=== PATIENT | male | born 1985 | race American Indian/Alaskan Native ===

== ENCOUNTER 2021-10-04 14:45 | Outpatient (CLI) | payer OTHER ==
--- NOTE | 2021-10-04 16:22 | MRI Report ---
PROCEDURE: Lumbar Spine W/O INDICATIONS: LOW BACK PAIN TECHNIQUE: Noncontrast sagittal T1 spin echo and T2 fast echo, sagittal STIR, axial T1 and T2 fast spin echo thr ough the lumbar spine. In cases with scoliosis, additional coronal T2 fast spin echo may be performe d. COMPARISON: None. FINDINGS: Normal lumbar vertebral body height and alignment. No suspicious focal marrow signal abnormality or b one marrow edema. Normal position and appearance of the conus. Regional soft tissues demonstrate no s ignificant abnormality. T12-L1: No spinal canal or neural foraminal stenosis. No significant degenerative changes. L1-L2: Disc desiccation and disc height loss. Diffuse disc bulge flattening the ventral thecal sac without mass effect upon the traversing L2 nerve roots. No neural foraminal stenosis. L2-L3: No significant degenerative change, spinal canal stenosis, or neural foraminal stenosis. L3-L4: Disc desiccation and disc height loss with diffuse disc bulge and a superimposed broad-based posterior disc protrusion in the central and left paracentral zones where there is an associated sonja ular fissure. Disc material flattens and indents the ventral thecal sac without mass effect upon the traversing L4 nerve roots. Mild left neural foraminal stenosis due to a small foraminal component of the disc bulge. L4-L5: Disc desiccation and disc height loss. Diffuse disc bulge and a superimposed broad-based pos terior disc protrusion in the central, right paracentral, and right subarticular zones where there is an associated annular fissure. Disc material mildly displaces the descending right L5 nerve roots in the right subarticular zone. There is mild bilateral neural foraminal stenosis due to foraminal comp onents of the disc bulge, more so on the right. L5-S1: No spinal canal or neural foraminal stenosis. IMPRESSION: Degenerative changes at L3-L4 and L4-L5. Mild displacement of the descending right L5 nerve roots of the right subarticular zone by bulging di sc material. Correlate for corresponding right L5 radicular symptoms. Annular fissures of the L3-L4 and L4-L5 discs, potential sources of nonradicular axial back pain. Reviewed by: Pete Roper MD on 10/04/2021 4:20 PM PDT Approved by: Pete Roper MD on 10/04/2021 4:20 PM PDT Station ID: [id number]
== END 2021-10-04 14:46 | disposition home or self-care (01) ==
LOC: DI 14:45
DX: M51.36 Other intervertebral disc degeneration, lumbar region (principal); M48.061 Spinal stenosis, lumbar region without neurogenic claudication; M51.16 Intervertebral disc disorders with radiculopathy, lumbar region

== ENCOUNTER 2022-01-31 08:22 | Outpatient (CLI) | payer OTHER | END 2022-01-31 08:23 | disposition home or self-care (01) | LOC: SC 08:22 | PROVIDERS: ATTEND Nurse Practitioner Family | DX: G47.33 Obstructive sleep apnea (adult) (pediatric) (principal); R09.02 Hypoxemia; Z68.36 Body mass index [BMI] 36.0-36.9, adult | CPT/HCPCS: 95806 ==

== ENCOUNTER 2022-02-07 15:46 | Outpatient (CLI) | payer OTHER ==
--- NOTE | 2022-02-07 16:13 | SLEEP CARE CONSULTATION ---
Information from patient questionnaire entered by Cely Camejo. I have reviewed and concur with the information entered by Cely Camejo. This document represents the service I personally performed and the decisions made by me, Daphne Saez ARNP. History of Present Illness Service Date and Time: 02/07/2022 1546 Initial [place] Sleepiness Scale score: 16 (01/11/2022) Current [place] Sleepiness Scale score: 14 (02/07/22) Additional HPI information: FRANCISCA WALL returns for follow up and results of the recently performed home sleep study. I explained the pathophysiology behind obstructive sleep apnea. We then spent quite a bit of time discussing different treatment options. For mild obstructive sleep apnea, surgery and oral appliance are alternatives to nasal CPAP therapy but in moderate or severe cases, nasal CPAP is the most effective and reliable treatment. I reviewed the impact of weight changes on sleep apnea and strongly recommended losing weight. After some discussion, the patient opted to go with the nasal CPAP therapy. Nasal autoCPAP set at 4-15 cmH20 will be ordered with rationale explained. A manual titration study will be ordered if unable to find optimal pressure with office adjustments. I explained how CPAP machine works and what to expect when using the machine. Using CPAP every night in order to get used to it was emphasized. Patient advised to put CPAP mask on before getting into bed so as not to fall asleep without CPAP. The patient was instructed to call the CPAP supplier to discuss any mechanical problem that may occur. If the mask given is uncomfortable or is difficult to keep on through the night even with adjustment, contact the CPAP supplier as many will replace with another mask style if notified before 30 days. If snoring or perceives is not getting enough air or too much air from the machine, notify this office. Patient counseled not drink alcohol less than 4 hours before bedtime as it can increase snoring and apnea. Patient was cautioned about risks of drowsy driving until sleepiness symptoms resolve. Patient denies drowsy driving. Sleep Study - Results Type of Sleep Study: Home sleep study (F/U HST, DONE 01/31/22) Prior sleep studies: Yes Year and Where: 2016 [place], [place] Polysomnography/Home Sleep Study results: Physician Impression: The quality of the study is good. The length of the study is adequate (> 240 minutes). Please also see the tabulated and graphic data. 1. Obstructive Sleep Apnea-Hypopnea (ICD-10 G47.33), severe, with an AHI of 47.5/hr and chidi SaO2 of 70%. During the study, the patient had 372 apneas (372 obstructive, 0 central, 0 mixed) and 79 hypopneas. The longest episode lasted 98.0 seconds. The respiratory events occurred more frequently during supine sleep (supine AHI was 88.6 and non-supine, 29.19). 2. Hypoxemia (ICD-10 R09.02), moderate, with the lowest oxygen saturation of 70 % and 69.3 minutes with SaO2 under 90%. Baseline oxygen saturation was normal (Average oxygen saturation was 94%). Allergies and Home Medications Drug allergies reviewed: Yes (NKDA) Home medication list reviewed: Yes (no changes) Review of Systems Review of systems same as previous: Yes (no changes) Physical Exam Vital signs obtained and entered by: KARLA BOURGEOIS Blood Pressure: 138/88 (LEFT ARM ) Cuff size: regular Heart Rate: 84 O2 Saturation: 98 Height: 5 ft 9 in Weight: 258 lb Body Mass Index: 38.0 BMI Classification: Obese Impression and Plan 1. Obstructive Sleep Apnea-Hypopnea Syndrome, severe, with lowest oxygen saturation of 70%. Obviously this is the cause of the patients symptoms of unrefreshed sleep, and excessive daytime sleepiness. Positive pressure therapy could benefit anxiety, depression and attention deficit. As mentioned above, the patient will be started on nasal autoCPAP therapy with pressure set at 4-15 cmH2O. Compliance guidelines also reviewed. A copy of compliance guidelines will be given for reference at check out. Because the apnea is more severe supine, I instructed to avoid sleeping supine using pillow positioning until able to start CPAP use. 2. Hypoxemia, moderate, with the lowest oxygen saturation of 70 % and 69.3 minutes with SaO2 under 90%. His baseline oxygen saturation was normal with an average oxygen saturation of 94%. * Nasal auto CPAP therapy, pressure at 4-15 cm H2O. * Attempt to lose weight. * Avoid alcohol consumption near bedtime. * Avoid supine sleep until using CPAP. * The patient is again cautioned about driving until sleepiness completely resolves. * Return one month after CPAP obtained. I will assess response to therapy and compliance at that time. Counseling Topics: Sleeping position, Weight loss health impact Visit Type: In Office Time Spent with Patient (minutes): 13 Provider Statement: I spent 100% of the Face to Face Visit with the patient with greater than 50% spent counseling the patient and coordination of care.
[2022-02-07 16:14] VITALS: BP 138/88
== END 2022-02-07 15:47 | disposition home or self-care (01) ==
LOC: SC 15:46
PROVIDERS: ATTEND Nurse Practitioner Family
DX: G47.33 Obstructive sleep apnea (adult) (pediatric) (principal); R09.02 Hypoxemia; E66.9 Obesity, unspecified; Z68.38 Body mass index [BMI] 38.0-38.9, adult
CPT/HCPCS: 99212

== ENCOUNTER 2022-11-22 06:57 | Outpatient (CLI) | payer OTHER ==
--- NOTE | 2022-11-22 09:07 | MRI Report ---
PROCEDURE: SHOULDER WO - LT INDICATIONS: LT SHOULDER PAIN, HX REPAIR LABRUM OF LT SHOULDER TECHNIQUE: Noncontrast oblique coronal T2 fast spin echo with fat saturation, oblique sagittal T1 spin echo and T2 fast spin echo with fat saturation, axial T1 spin echo and T2 fast spin echo with fat saturation t hrough the shoulder. COMPARISON: None. FINDINGS: Image quality: Excellent. Rotator cuff: Mild T2 signal elevation throughout the supraspinatus and infraspinatus tendons at the humeral insertion sites extending the muscular tendinous junctions, indicating tendinopathy. Superimp osed low-grade bursal surface tears of the anterior, mid, posterior supraspinatus as well as the ante rior and mid infraspinatus tendons at the humeral insertion sites extending the muscular tendinous ju nctions. Subscapularis and teres minor tendons are intact. No rotator cuff muscle atrophy on sagittal images. Bones and bursae: No bone marrow contusions or fractures. Instrumentation tracks within the inferior glenoid. Mild acromioclavicular joint degeneration. The acromion demonstrates conventional anatomy, without an os acromiale. No pathologic subacromial/subdeltoid bursal fluid is present. Capsule and soft tissues: There is undercutting of the posterior inferior labrum. The long head of th e biceps tendon demonstrates normal location and morphology. The rotator interval appears normal, wi thout fibrosis. The coracohumeral ligament is normal in thickness. IMPRESSION: 1. 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 2. Postsurgical sequelae. 3. Undercutting of the posterior inferior labrum, which could indicate recurrent labral tearing. MRI arthrography may be helpful for further assessment. 4. Acromioclavicular joint osteoarthritis. Reviewed by: Ronnie Giordano MD on 11/22/2022 9:05 AM PDT Approved by: Ronnie Giordano MD on 11/22/2022 9:05 AM PDT Station ID: [id number]
== END 2022-11-22 06:58 | disposition home or self-care (01) ==
LOC: DI 06:57
DX: M75.112 Incomplete rotator cuff tear or rupture of left shoulder, not specified as traumatic (principal); M19.012 Primary osteoarthritis, left shoulder

== ENCOUNTER 2023-04-11 14:03 | Outpatient (CLI) | payer OTHER ==
--- NOTE | 2023-04-11 14:37 | Sleep Patient Instructions ---
Sleep Center Visit Summary - Patient Visit Information Reason for Visit: Annual Visit - Patient Instructions Additional Instructions: You will continue with CPAP therapy with pressure changed to 4-8 cmH2O. A supply prescription will be updated with your DME. A prescription for a travel CPAP was given to you today. We encourage you to continue to try to lose weight. Please follow up with the sleep care office in 1 year. - Clinic Information Contact: [facility] [address] [place] [email or web address] T: [phone]
[2023-04-11 14:43] VITALS: BP 127/84; O2SAT 95
--- NOTE | 2023-04-11 14:43 | SLEEP CARE CONSULTATION ---
Information from patient questionnaire entered by Rin Pérez. I have reviewed and concur with the information entered by Rin Pérez. This document represents the service I personally performed and the decisions made by , Daphne Saez ARNP. History of Present Illness Service Date and Time: 04/11/2023 1403 Previous diagnosis: Severe, Obstructive Sleep Apnea-Hypopnea Syndrome AHI: 47.5 (in 01/2022) Reason for follow up: first compliance, annual Equipment type: CPAP (RESMED 2022) Equipment obtained from: Other ([facility]; getting supplies) Mask style: Nasal pillows Backup mask available: No (will keep old mask when replaced) Last cushion change: 2 days ago Prior sleep studies: Yes Year and Where: 2016 [place], [place] Type of Sleep Study: Home sleep study (F/U HST, DONE 01/31/22) HPI additional information: FRANCISCA WALL was diagnosed to have severe, AHI 47.5, obstructive sleep apnea- hypopnea syndrome and returned today for CPAP therapy first compliance/annual fo llow-up. Sleep Study - Results Type of Sleep Study: Home sleep study (F/U HST, DONE 01/31/22) Prior sleep studies: Yes Year and Where: 2016 [place], [place] CPAP Compliance Data - Data Reviewed with Patient Average duration of nightly device use: 6 hours 25 minutes Compliance rate %: 90 (/30 days used) Current pressure setting (cmH2O): 4-15 (median 4.7, avg 6.6, max 7.8) Average residual AHI: 0.4 Central apnea: 0.1 Obstructive apnea: 0.2 Average large leak: 1 L/min Subjective Missed days of use due to: reports: illness, travel Patient concerns: reports: nasal congestion (due to allergies and illnesses). denies: aerophagia, mask discomfort, air blowing in eyes, mask leak noise, condensation in mask/hose, dry mouth, nose, throat, epistaxis Observed to snore while using device: No Current pressure setting perceived as: comfortable On therapy, patient: reports: sleeping better, awakening more refreshed, being more awake and alert during the day, more rested overall. denies: drowsiness while driving Initial [place] Sleepiness Scale score: 16 (01/11/2022) Current [place] Sleepiness Scale score: 14 Allergies and Home Medications Known drug allergies: No Drug allergies reviewed: Yes Home medication list reviewed: Yes (Trulicity, phentermine, pravastatin; ibuprofen and allergy meds prn) Review of Systems Review of systems same as previous: Yes (no changes) Physical Exam Vital signs obtained and entered by: Daphne Palmer NP Blood Pressure: 127/84 Cuff size: wrist (right) Heart Rate: 76 O2 Saturation: 95 Height: 5 ft 9 in Weight: 246 lb 3.2 oz Weight change since last visit: 23 lb loss Body Mass Index: 36.3 BMI Classification: Obese Impression and Plan 1. Obstructive Sleep Apnea-Hypopnea Syndrome, severe, with good treatment compliance and good apnea control. On CPAP therapy, the patient has better sleep quality and is more rested overall. Patient asks about getting a travel CPAP machine since he [place] a lot for the [employer] [place] and sometimes does not have room to take his regular CPAP. A prescription will be give to patient, he understands that insurance does not always pay for this and will talk to his PCM about getting it covered. The patients pressure will be changed to autoCPAP 4-8 cmH20 to reflect pressure being used. Patient advised to contact me if pressure change is uncomfortable so that it can be adjusted. Goals for apnea control discussed. Patient's apnea severity and rationale for treatment to reduce apnea, improve sleep quality and reduce cardiovascular and cerebrovascular events was reviewed. I also reviewed the benefit of consistent device use of CPAP for depression/anxiety and attention deficit. 2. Obesity, unspecified. Currently patients BMI is 36.3. Obesity increases the risk of apnea, CPAP pressure requirements and overall health risks especially cardiovascular and diabetes. Thus patient is advised to continue to try to lose weight. * Change auto CPAP pressure to 4-8 cmH2O * Update supply prescription * Prescription for travel CPAP * Notify me if snoring with mask or feeling that the pressure is too much or too little * Attempt to lose weight * Call this office if any problems using CPAP * Return for follow up in 3 months, or sooner if concerns arise Counseling Topics: Spare mask, Weight loss health impact Prescriptions: Device supplies, Other (travel CPAP) Follow up with Sleep Care in: 3 months Visit Type: In Office Time Spent with Patient (minutes): 28 Provider Statement: I spent 100% of the Face to Face Visit with the patient with greater than 50% spent counseling the patient and coordination of care.
== END 2023-04-11 14:04 | disposition home or self-care (01) ==
LOC: SC 14:03
PROVIDERS: ATTEND Nurse Practitioner Family
DX: G47.33 Obstructive sleep apnea (adult) (pediatric) (principal); E66.9 Obesity, unspecified; Z68.36 Body mass index [BMI] 36.0-36.9, adult
CPT/HCPCS: 99212; 99213